=== PATIENT | male | born 1970 | race Caucasian/White ===

== ENCOUNTER 2025-10-03 07:22 | Inpatient (IN) | payer OTHER, SELFPAY ==
[2025-10-03] VITALS (11 sets, daily range): BP systolic 128–150; BP diastolic 81–96; PULSE 94–110; RESP 16–18; TEMP 36.8–38.1; O2SAT 91–97; BMI 39.7; BMI 37.2
--- NOTE | 2025-10-03 07:35 | ECG_ITS ---
APPROVED REPORT Exam: Resting ECG HR:106 bpm ECG Measurements Heart Rate 106 AXES WV 142 P 13 QRSd 102 QRS 24 QT 320 T -14 QTc 382 Conclusion SINUS TACHYCARDIA INFERIOR MYOCARDIAL INFARCTION , OF INDETERMINATE AGE [40+ ms Q WAVE AND/OR ST/T ABNORMALITY IN II/aVF] ABNORMAL ECG UNCONFIRMED REPORT Sinus tachycardia. No ST elevation or depression. QTc normal at 392 Electronically signed by : MICHELLE JUNE, 10/03/2025 15:28:45
--- NOTE | 2025-10-03 07:35 | CT_ITS ---
PROCEDURE INFORMATION: Exam: CT Abdomen And Pelvis With Contrast Exam date and time: 10/03/2025 7:55 AM Age: 54 years old Clinical indication: Constipation; Additional info: Constipation, postprandial upper abdominal pain TECHNIQUE: Imaging protocol: Computed tomography of the abdomen and pelvis with contrast. Radiation optimization: All CT scans at this facility use at least one of these dose optimization techniques: automated exposure control; mA and/or kV adjustment per patient size (includes targeted exams where dose is matched to clinical indication); or iterative reconstruction. Contrast material: ISOVUE; Contrast volume: 84 ml; Contrast route: IV; COMPARISON: No relevant prior studies available. FINDINGS: Coronary arteries: There are coronary artery calcifications. Liver: Normal. No mass. Gallbladder and biliary ducts: No calcified stones. No ductal dilation. Pancreas: Normal. No ductal dilation. Spleen: There is a 1 cm hypodensity in the spleen which is too small to characterize but is statistically incidental. Adrenal glands: Normal. No mass. Kidneys and ureters: Normal. No hydronephrosis. Stomach and bowel: There is diverticulosis throughout the left colon. There is elongated diverticulitis of the sigmoid colon. Appendix: No evidence of appendicitis. Intraperitoneal space: There is infiltration of the adjacent sigmoid mesentery with a 5.6 x 5.8 x 3.1 cm contained collection with gas within (series 3, image 86). There is a separate 1.3 cm collection with gas within as well. There is infiltration of the pelvic fat consistent with inflammatory change. Vasculature: No abdominal aortic aneurysm. Lymph nodes: No enlarged lymph nodes. Urinary bladder: Unremarkable as visualized. Reproductive: The prostate is enlarged. Bones/joints: There are degenerative changes of the spine there is ankylosis of the sacroiliac joints. Soft tissues: There is a fat containing periumbilical hernia. IMPRESSION: 1. Severe sigmoid diverticulitis with perforation and adjacent mesenteric collections. 2. Extensive colonic diverticulosis.
--- NOTE | 2025-10-03 07:37 | HMH.EDGENADL ---
Discharge Plan Disposition Patient Disposition: Admitted Prescriptions Prescriptions: No Action No Known Home Medications Referrals Follow up/Referrals: Lea Velasquez APRN [Primary Care Provider, Family Practice] - See instructions Clinical Impressions Clinical Impression: Diverticulitis of colon with perforation, Acute hyponatremia, Leukocytosis Instructions Patient Instructions: DI for Acute Abdominal Pain Print Language Print Language: Yoruba Discharge ED Provider: Galen Rangel General Adult HPI General Chief complaint: Abdominal Pain Stated complaint: stomach pain, constipation, sweats Time Seen by Provider: 10/03/25 07:29 History of Present Illness HPI narrative: Rayo Hill is a 54y male who is not currently taking any medications and has no known medical problems who presents to the emergency department for complaints of 3-1/2 weeks of constipation and abdominal pain. Patient states that for last 3-1/2 weeks, he feels the need to have a bowel movement every few hours but will often times not produce any stool or if he does, it is hard and small-volume. He denies any bloody stools. He also reports intermittent episodes of severe abdominal pain, mostly in the upper and mid abdomen. He states that this does seem to worsen several hours after eating. He will eat dinner and then later that night he will have severe pain. He denies any abdominal surgeries. He denies any alcohol, tobacco or recreational drug use. He denies any chest pain or shortness of breath. He states that on night, he woke up in a pool of sweat and severe pain but did not seek care at that time. He denies any dysuria or hematuria but states that sometimes he can go 2 to 3 hours and not have to urinate. Related Data Home Medications ?Medication ?Instructions ?Recorded ?Confirmed No Known Home Medications 02/04/24 02/04/24 Allergies Allergy/AdvReac Type Severity Reaction Status Date / Time No Known Allergies Allergy Verified 02/04/24 15:[address] [facility] Disclaimer: The information contained in this section may have been updated after the patient was seen, as this information can be updated by other users. Social History Smoking Status: Never smoker alcohol intake: current current occupational status: employed Travel in the last 8 weeks?: Inside the [place] Have you lived/traveled outside US in past 30 days?: No Contact w/someone who lives/traveled outside US past 30 days?: No Exposure to someone with infectious disease in past 14 days?: No Do you have a fever (greater than 100.4 F or 38 C)?: No Have you tested positive for COVID-19?: No Exposed to someone with COVID-19 in past 14 days?: No Do you have a sore throat?: No Do you have a cough?: No Do you have any weakness?: No Do you have any diarrhea?: No Are you experiencing any unusual bleeding?: No Do you have any muscle aches/pain?: No Do you have any abdominal pain?: Yes Are you experiencing loss of taste or smell?: No Other Medical History Have you received the Pneumonia Vaccine: No ROS Obtained: Yes Systems reviewed as appropriate & no additional complaints except as documented Physical Exam General General appearance: alert and in no apparent distress Head Head exam: atraumatic Eye Eye exam: Present normal appearance ENT ENT exam: Present normal external ear exam Neck Neck exam: Present full ROM Chest Chest inspection: Present symmetric chest wall rise Respiratory Respiratory exam: Present normal lung sounds bilaterally; Absent respiratory distress, wheezes or stridor Cardiovascular Cardiovascular exam: Present normal rhythm and tachycardia Abdominal Exam Abdominal exam: Present soft, distention (mildly distended), tenderness (Generalized abdominal tenderness but more focally in the right upper quadrant and epigastric region) and guarding (grimacing with palpation); Absent rigidity exam: Present deferred Extremities Exam Extremities exam: Present normal inspection Back Exam Back exam: Present normal inspection Neurological Exam Neurological exam: Present alert and oriented X3 Psychiatric Psychiatric exam: Present normal affect Skin Skin exam: Present warm and dry Medical Decision Making Medical Records Screening: Per USPSTF and CDC recommendations, given the prevalence of disease in our region, it is our hospital?s policy to screen for HIV and viral Hepatitis for all patients aged 18 and over and those with ongoing risk factors. Barry Inquiry Pt receiving controlled substance: No Vital Signs: 10/03/25 07:25 10/03/25 07:25 10/03/25 07:30 Temperature 98.4 F 98.4 F Temperature Source Oral Oral Pulse Rate 110 H 109 H Pulse Rate [Right] 110 H Respiratory Rate 16 16 Blood Pressure 145/96 H 145/96 H Blood Pressure [Right Arm] 145/96 H Blood Pressure Mean Blood Pressure Mean [Right Arm] 112 Blood Pressure Source Automatic Cuff Blood Pressure Source [Right Arm] Automatic Cuff Blood Pressure Position Supine Blood Pressure Position [Right Arm] Supine 02 Sat by Pulse Oximetry 96 96 95 Oxygen Delivery Method Room Air Room Air Room Air 10/03/25 08:00 10/03/25 08:15 10/03/25 08:30 Temperature Temperature Source Pulse Rate 101 H 98 H 99 H Pulse Rate [Right] Respiratory Rate 16 Blood Pressure 136/95 H 128/91 H 139/95 H Blood Pressure [Right Arm] Blood Pressure Mean 101 Blood Pressure Mean [Right Arm] Blood Pressure Source Blood Pressure Source [Right Arm] Blood Pressure Position Blood Pressure Position [Right Arm] 02 Sat by Pulse Oximetry 91 L 96 94 L Oxygen Delivery Method Room Air Room Air Lab Data Lab Results 10/03/25 07:50: WBC 25.5 H*, RBC 4.97, Hgb 12.7 L, Hct 39.2 L, MCV 78.9 L, MCH 25.6 L, MCHC 32.4, RDW 15.5, Plt Count 541 H, MPV 9.2, Neut % (Auto) 81.8 H, Lymph % (Auto) 7.8 L, Reynolds % (Auto) 8.6, Eos % (Auto) 0.3, Baso % (Auto) 0.3, Neut # (Auto) 20.9 H, Lymph # (Auto) 2.0, Reynolds # (Auto) 2.2 H, Eos # (Auto) 0.1, Baso # (Auto) 0.1, Sodium 132 L, Potassium 4.0, Chloride 102, Carbon Dioxide 22, Anion Gap 12.0, BUN 14, Creatinine 0.80, Estimated Creat Clear 182, Estimated GFR 101, Est GFR ( Amer) 122, Glucose 120 H, Lactate 0.6 L, Calcium 8.9, Total Bilirubin 0.6, AST 23, ALT 27, Alkaline Phosphatase 86, Troponin I < 0.01, Total Protein 7.9, Albumin 3.8, Globulin 4.1 H, Albumin/Globulin Ratio 0.9 L, Lipase 41 10/03/25 07:50 10/03/25 07:50 Orders (Tests/Meds): ED MEDICATIONS Generic Name Dose Route Start Last Admin Trade Name Freq PRN Reason Stop Dose Admin Piperacillin Sod/Tazobactam 100 mls @ 200 mls/hr 10/03/25 08:31 Sod 4.5 gm/ Sodium Chloride IV 10/03/25 09:00 ONCE ONE Sodium Chloride 10 ml 10/03/25 07:55 10/03/25 07:57 Sodium Chloride 0.9% 10ml Syr (Rad Only) IV 11/02/25 07:54 10 ml NEEDED PRN Administration Maintain IV Site Discontinued Medications Generic Name Dose Route Start Last Admin Trade Name Ramona PRN Reason Stop Dose Admin Lactated Ringer's 1,000 mls @ 999 mls/hr 10/03/25 07:40 10/03/25 07:48 Lactated Ringer's 1000 Ml Bag IV 10/03/25 08:40 999 mls/hr .Q1H1M ONE Administration Iopamidol 84 ml 10/03/25 07:55 10/03/25 07:57 Iopamidol-370 (76%);100ml Bottle IV 10/03/25 07:56 84 ml ONCE ONE Administration Morphine Sulfate 4 mg 10/03/25 07:35 10/03/25 07:48 Morphine 4mg/Ml Syringe IV 10/03/25 07:36 4 mg ONCE ONE Administration Ondansetron HCl 4 mg 10/03/25 07:35 10/03/25 07:48 Ondansetron 4mg/2ml Vial IV 10/03/25 07:36 4 mg ONCE ONE Administration ORDERS Category Date Time Status CT abdomen pelvis w con Stat Cat Scan 10/03/25 07:35 Completed CBC w/Auto Diff [Complete Blood Count Auto Diff] Stat Lab 10/03/25 07:50 Results CMP [Comprehensive Metabolic Panel] Stat Lab 10/03/25 07:50 Completed HIV Combo Stat Lab 10/03/25 07:50 Received Hepatitis C Ab Qual. W/ RFX Stat Lab 10/03/25 07:50 Received Lactic Acid Stat Lab 10/03/25 07:50 Completed Lipase Stat Lab 10/03/25 07:50 Completed Troponin I Q3H Lab 10/03/25 10:45 Ordered Troponin I Q3H Lab 10/03/25 13:45 Ordered Troponin I Stat Lab 10/03/25 07:50 Completed UA [Urinalysis and Microscopic] Stat Lab 10/03/25 07:35 Ordered Blood Culture Stat Micro 10/03/25 08:37 Ordered Medical Decision Narrative: Rayo Hill is a 54y male who is not currently taking any medications and has no known medical problems who presents to the emergency department for complaints of 3-1/2 weeks of constipation and abdominal pain. Patient states that for last 3-1/2 weeks, he feels the need to have a bowel movement every few hours but will often times not produce any stool or if he does, it is hard and small-volume. He denies any bloody stools. He also reports intermittent episodes of severe abdominal pain, mostly in the upper and mid abdomen. He states that this does seem to worsen several hours after eating. He will eat dinner and then later that night he will have severe pain. He denies any abdominal surgeries. He denies any alcohol, tobacco or recreational drug use. He denies any chest pain or shortness of breath. He states that on night, he woke up in a pool of sweat and severe pain but did not seek care at that time. He denies any dysuria or hematuria but states that sometimes he can go 2 to 3 hours and not have to urinate. He reports some nausea but denies any vomiting. On arrival, patient is mildly hypertensive blood pressure 145/96, mildly tachycardic with a heart rate of 107 bpm, oxygen saturation 95% on room air. Physical exam, as stated above, revealed overall well-appearing male in no respiratory distress. He is alert and answering questions appropriately. Abdomen appears mildly distended and he is tender throughout but more focally in the right upper quadrant and epigastric region. He has grimacing with tenderness in the upper abdomen. Abdomen is not peritonitic. Cardiopulmonary exam reveals no murmurs or rubs. No wheezing, rales or rhonchi. Differential diagnosis includes, but is not limited to: Constipation, fecal impaction, small obstruction, malignancy, acute pancreatitis, acute cholecystitis, choledocholithiasis, enteritis/colitis, diverticulitis, ACS, among others. The most morbid conditions were considered and workup was based on these. Workup in the emergency department included: CT abdomen pelvis with IV contrast, CBC with differential, CMP, lipase, lactic acid, urinalysis, EKG, troponin. Patient was administered 4 mg of IV morphine, 4 mg of IV Zofran and 1 L lactated ringer. EKG was interpreted by me personally. Sinus tachycardia but no ST elevation or depression. Deep Q waves in inferior leads, which could represent old myocardial infarction. QTc normal at 392 CT imaging was interpreted by me personally and radiology called shortly after my interpretation. Patient does have significant diverticulitis with in the sigmoid colon with mesenteric fat stranding. Per radiology, there is infiltration of the adjacent sigmoid mesentery with a 5.6 x 5.8 x 3.1 cm contained collection with gas within series 3, image 86. There is a separate 1.3 cm collection with gas within as well. There is infiltration of the pelvic fat consistent with inflammatory change. Radiology describes as severe sigmoid diverticulitis with perforation and adjacent mesenteric collections with extensive colonic diverticulosis. See final radiology report for details. I did discuss patient's case with Dr. Bowser with general surgery who recommended patient be placed on IV antibiotic, admitted clear liquid diet, and he will evaluate the patient as a consulting service and recommend admission to the hospital medicine service will place patient on. Patient will likely require serial abdominal exams and continued IV antibiotics but if he becomes peritonitic he may need operative intervention or drain placed by radiology. 4.5 g of IV Zosyn. I did discuss these findings with the patient and plan and he is in agreement to proceed with admission at this time. Lab work shows significant leukocytosis at 25.5 with neutrophilia. Mildly low hemoglobin at 12.7, hematocrit 39.2. Mild hyponatremia 132 but electrolytes within normal limits. No ASTRID. Initial troponin less than 0.01. Lipase normal at 41. I did discuss patient's case with Dr. Wallace with the hospital medicine service at approximately 08 40 and he agreed to admit the patient for further management. Admitting diagnosis is perforated diverticulitis. Critical Care Critical Care Time Critical Care Time: No
--- OUTSIDE RECORDS SUMMARY | 2025-10-03 07:37 | XMS_ITS ---
Author Organization Unknown ENCOUNTERS Encounter Performer Location Date Diagnosis Diagnosis Status Emergency [facility] [address] [place] [address] [id number] Pre Admit [facility] [address] [place] [address] [id number] *Note: Encounters from your own facility or health system may be excluded. Allergies, Adverse Reactions, Alerts Allergen Type Severity Identification Date Medications Name Date Quantity Days Supplied GPI Number
--- OUTSIDE RECORDS SUMMARY | 2025-10-03 07:37 | XMS_ITS | Clinical Summary ---
Author Organization [facility] Address [address] [place] [id number] Phone Care Team Providers Care New Media Strategist Name Role Phone Unavailable Primary Care Provider Unavailabl e Allergies No known active allergies Medications No known medications Social History Tobacco Use Types Packs/Day Years Used Date Smoking Tobacco: Never Alcohol Use Standard Drinks/Week Comments No 0 (1 standard drink = 0.6 oz pur e alcohol) Sex and Gender Information Value Date Recorded Sex Assigned at Not on file Legal Sex Male 8:25 PM EDT Gender Identity Not on file Sexual Orientation Not on file Last Filed Vital Signs Vital Sign Reading Time Taken Comments Blood Pressure - - Pulse - - Temperature - - Respiratory Rate - - Oxygen Saturation - - Inhaled Oxygen Concentration - - Weight 125.2 kg (276 lb) 11/18/2012 10:13 AM EST Height 182.9 cm (6') 11/18/2012 10:13 AM EST Body Mass Index 37.43 11/18/2012 10:13 AM EST Plan of Treatment Health Maintenance Due Date Last Done Comments Annual Wellness Exam 1973 DTaP/TDaP/Td (1 - Tdap) 1989 Hepatitis B Vaccine (1 of 3 - 19+ 3-dose series) 1989 Cologuard 2015 Colon Cancer Screening 2015 Colonoscopy 2015 FIT 2015 Sigmoidoscopy 2015 Virtual Colonography 2015 Pneumococcal Vaccine 50+ (1 of 1 - PCV) 2020 Zoster (1 of 2) 2020 COVID-19 Vaccine ( - 2024-2 6 season) 2025 Influenza Vaccine (#1) 2025 Meningococcal B Vaccine Aged Out No l onger eligible based on patient's age to complete this topic
[2025-10-03] MEDS: LACTATED RINGERS 1000ML 1,000 ML 999 ML IV (07:48)
[2025-10-03] MEDS: MORPHINE 4MG/ML SYRINGE 4 MG IV (07:48)
[2025-10-03] MEDS: ONDANSETRON 4MG/2ML VIAL 4 MG IV (07:48)
[2025-10-03] MEDS: SODIUM CHLORIDE 0.9% 10ML SYR (RAD ONLY) 10 ML IV (07:57)
[2025-10-03] MEDS: IOPAMIDOL-370 (76%);100ML BOTTLE 84 ML IV (07:57)
[2025-10-03 08:09] LABS: Hematocrit 39.2 % (42.0-52.0); Hemoglobin 12.7 g/dL (14.1-18.0); Immature Granulocytes % 1.2 %; Mean Corpuscular HGB Conc 32.4 g/dL (31.8-35.4); Mean Corpuscular Hemoglobin 25.6 pg (27.0-31.2); Mean Corpuscular Volume 78.9 fl (80-94); Nucleated Red Blood Cells % 0 %; Platelet Count 541 K/mm3 (142-424); Red Blood Count 4.97 M/mm3 (4.60-6.20); Red Cell Distribution Width-SD 44.0 fL; White Blood Count 25.5 K/mm3 (4.8-10.8)
[2025-10-03 08:16] LABS: Alanine Aminotransferase 27 U/L (12-78); Albumin Level 3.8 g/dl (3.5-5.0); Albumin/Globulin Ratio 0.9 (1.1-1.8); Alkaline Phosphatase 86 U/L (38-126); Anion Gap 12.0 mEq/L (5-15); Aspartate Amino Transferase 23 U/L (17-59); Bilirubin,Total 0.6 mg/dl (0.2-1.3); Blood Urea Nitrogen 14 mg/dl (9-20); Calcium 8.9 mg/dl (8.4-10.2); Carbon Dioxide 22 mmol/L (22.0-30.0); Chloride 102 mmol/L (98-107); Creatinine Clearance Estimated 182 mL/min (50-200); Creatinine,Serum 0.80 mg/dl (0.66-1.25); Estimated Glomerular Filt Rate 101 ml/min (>60); GFR (African American) 122 ML/MIN (>60); Globulin 4.1 g/dL (1.3-3.2); Glucose 120 mg/dl (74-100); Lipase 41 U/L (23-300); Potassium 4.0 mmoL/L (3.5-5.1); Sodium 132 mmol/L (136-145); Total Protein,Serum 7.9 g/dl (6.3-8.2)
--- NOTE | 2025-10-03 08:19 | PC.NURSE ---
Critical CT results called by the radiologist. I relayed to that the results show perforated diverticulitis and we should consult gen surgery.
--- NOTE | 2025-10-03 08:21 | PC.NURSE ---
Notified admissions to call surgery team for ED doctor
--- NOTE | 2025-10-03 08:23 | PC.NURSE ---
Notified admission to call surgeon for ED doctor
--- NOTE | 2025-10-03 08:23 | PC.NURSE ---
ROBIN CASTILLO on phone with surgeon
[2025-10-03 08:32] LABS: Troponin I < 0.01 ng/ml (0.00-0.034)
--- NOTE | 2025-10-03 08:52 | PC.NURSE ---
[facility] accepted pt
--- NOTE | 2025-10-03 08:52 | PC.NURSE ---
house notified of hospital admission
[2025-10-03] MEDS: PIPERACILLIN/TAZO 4.5 GM in 0.9 % SODIUM CHLORIDE 100 ML IV (09:04)
--- NOTE | 2025-10-03 09:05 | PC.NURSE ---
Report called to STEVO Robert.
[2025-10-03 09:25] LABS: Hypochromasia 1+; Total Cells Counted 100
--- NOTE | 2025-10-03 09:34 | P.HP_ITS ---
History of Present Illness *Admission Date: 10/03/25 *Reason for visit:: Abdominal pain, chills *History of present illness: Rayo Hill is a 54-year-old male with a medical history significant for constipation, obesity who presents with worsening diffuse abdominal pain and chills over the past 3 weeks. He states he has been struggling with constipation recently, does have bowel movements every 2 days but straining. He states abdominal pain has predominantly been in the upper half, and has been having chills and night sweats over the past few weeks. He states after his CAT scan with contrast in the ER his abdominal pain has been more suprapubic. Denies chest pain, shortness of breath. Denies bloody bowel movements. Workup in the ED significant for WBC 25.5, MCV 78.9, lactic 0.6, UA normal, CT abdomen/pelvis showing severe sigmoid diverticulitis with perforation and adjac ent mesenteric collections. However, patient did not have peritoneal signs in the ED. Given his presentation, ED provider discussed case with me and Dr. Bowser (general surgery) and accepted patient for further evaluation and management. [facility] Disclaimer: The information contained in this section may have been updated after the patient was seen, as this information can be updated by other users. Social History Smoking Status: Never smoker alcohol intake: current current occupational status: employed Travel in the last 8 weeks?: Inside the [place] Have you lived/traveled outside US in past 30 days?: No Contact w/someone who lives/traveled outside US past 30 days?: No Exposure to someone with infectious disease in past 14 days?: No Do you have a fever (greater than 100.4 F or 38 C)?: No Have you tested positive for COVID-19?: No Exposed to someone with COVID-19 in past 14 days?: No Do you have a sore throat?: No Do you have a cough?: No Do you have any weakness?: No Do you have any diarrhea?: No Are you experiencing any unusual bleeding?: No Do you have any muscle aches/pain?: No Do you have any abdominal pain?: Yes Are you experiencing loss of taste or smell?: No Other Medical History Have you received the Flu Vaccine for this season: No Have you received the Pneumonia Vaccine: No Meds Home Medications and Allergies Home Medications ?Medication ?Instructions ?Recorded ?Confirmed ?Type No Known Home Medications 10/03/2509/13 History New Prescriptions to Start Prescriptions: Allergies Allergy/AdvReac Type Severity Reaction Status Date / Time No Known Allergies Allergy Verified 02/04/24 15:19 Exam Data for Last 24 hours Vital signs and Labs for Last 24 Hours: Temp Pulse Resp BP Pulse Ox O2 Del Method 98.4 F 95 H 16 139/95 H 95 Room Air 10/03/25 09:13 10/03/25 09:13 10/03/25 09:13 10/03/25 09:13 10/03/25 09:00 10/03/25 09:13 Laboratory Results - last 24 hr 10/03/25 07:50: WBC 25.5 H*, RBC 4.97, Hgb 12.7 L, Hct 39.2 L, MCV 78.9 L, MCH 25.6 L, MCHC 32.4, RDW 15.5, Plt Count 541 H, MPV 9.2, Neut % (Auto) 81.8 H, Lymph % (Auto) 7.8 L, [place] % (Auto) 8.6, Eos % (Auto) 0.3, Baso % (Auto) 0.3, Neut # (Auto) 20.9 H, Lymph # (Auto) 2.0, [place] # (Auto) 2.2 H, Eos # (Auto) 0.1, Baso # (Auto) 0.1, Total Counted 100, Neutrophils % (Manual) 81 H, Lymphocytes % (Manual) 15, Monocytes % (Manual) 4, Platelet Estimate Moderate increase, Hypochromasia 1+, Sodium 132 L, Potassium 4.0, Chloride 102, Carbon Dioxide 22, Anion Gap 12.0, BUN 14, Creatinine 0.80, Estimated Creat Clear 182, Estimated GFR 101, Est GFR ( Amer) 122, Glucose 120 H, Lactate 0.6 L, Calcium 8.9, Total Bilirubin 0.6, AST 23, ALT 27, Alkaline Phosphatase 86, Troponin I < 0.01, Total Protein 7.9, Albumin 3.8, Globulin 4.1 H, Albumin/Globulin Ratio 0.9 L, Lipase 41 I & O for Last 24 hours: Intake & Output 11/10/01/25 10/02/25 10/03/25 23:59 23:59 23:59 23:59 Intake Total 1000 / 1000 Balance 1000 / 1000 Weight 122.016 kg Constitutional Constitutional: no acute distress, obese and chronically ill appearing *Routine HEENT Exam Head: Present normocephalic Eye: Present EOMI and PERRL ENT: Present mucous membranes moist *Routine Neck Exam Neck: Present supple; Absent lymphadenopathy *Routine Respiratory Exam Respiratory: Present CTA bilaterally *Routine Cardiovascular Exam Cardiovascular: Present RRR *Routine Abdominal Exam Abdominal: Present soft and normoactive bowel sounds; Absent tenderness Comments: No peritoneal signs. *Routine Rectal Exam Rectal:: deferred *Routine Genitalia Exam Genitalia:: deferred *Routine Extremities Exam Extremities: Absent cyanosis, clubbing or edema *Routine Skin Exam Skin: Present warm; Absent rash *Routine Neurological Exam Neurological: Present alert and oriented X3 Assessment and Plan *Assessment and plan (1) Diverticulitis of large intestine with complication: Problem Comment: Severe pericolonic/mesenteric inflammation with contained gas collection Status: Acute Category: Medical Code(s): K57.32 - Diverticulitis of large intestine without perforation or abscess without bleeding Plan Rayo Hill is a 54-year-old male with a medical history significant for constipation, obesity who presents with worsening diffuse abdominal pain and chills over the past 3 weeks. He states he has been struggling with constipation recently, does have bowel movements every 2 days but straining. He states abdominal pain has predominantly been in the upper half, and has been having chills and night sweats over the past few weeks. He states after his CAT scan with contrast in the ER his abdominal pain has been more suprapubic. Denies chest pain, shortness of breath. Denies bloody bowel movements. Workup in the ED significant for WBC 25.5, MCV 78.9, lactic 0.6, UA normal, CT abdomen/pelvis showing severe sigmoid diverticulitis with perforation and adjacent mesenteric collections. However, patient did not have peritoneal signs in the ED. Given his presentation, ED provider discussed case with me and Dr. Bowser (general surgery) and accepted patient for further evaluation and management. #Sepsis #Acute severe sigmoid diverticulitis with perforation #Constipation ? Patient presented with diffuse abdominal pain, chills over the past [address] abdomen/pelvis revealed severe sigmoid diverticulitis with perforation and adjacent mesenteric collections. ? Initial WBC 25.5 with tachycardia. Lactic acid normal. ? On my evaluation, patient seems very comfortable and ambulating around the room. No peritoneal signs, or abdominal pain. No nausea/vomiting, tolerating clear liquid diet. ? General Surgery consulted, recommended medical management at this time given no peritonitis. ? Continue Zosyn 3.375 g every 6 hours. ? MiraLAX daily. ? Clear liquid diet for today, considering advancing tomorrow pending surgery recommendations. ? Follow-up blood cultures. ? Serial abdominal exams. ? Follow-up morning CBC. #Obesity ? BMI 37, complicates all aspects of care. #Microcytosis ? Follow-up iron panel, vitamins. Full code DVT prophylaxis: IPC's.
[2025-10-03 11:11] LABS: Troponin I < 0.01 ng/ml (0.00-0.034)
[2025-10-03] MEDS: ACETAMINOPHEN 325MG TAB 650 MG PO ×2 (11:37→18:07)
[2025-10-03 11:38] LABS: Hepatitis C Ab Qual. W/ RFX NEGATIVE (Negative)
--- NOTE | 2025-10-03 11:45 | EXP.SURG.CON ---
History of Present Illness *Admission Date: 10/03/25 *Reason for visit:: Diverticulitis *History of present illness: This is a 54-year-old gentleman seen in consultation after evaluation emergency department for worsening abdominal pain. He was found to have significant leukocytosis with a white blood cell count of 25.5. Follow-up CT scan revealed changes consistent with complicated diverticulitis. Forwarded from emergency department evaluation (truncated): Rayo Hill is a 54y male who is not currently taking any medications and has no known medical problems who presents to the emergency department for complaints of 3-1/2 weeks of constipation and abdominal pain. Patient states that for last 3-1/2 weeks, he feels the need to have a bowel movement every few hours but will often times not produce any stool or if he does, it is hard and small-volume. He denies any bloody stools. He also reports intermittent episodes of severe abdominal pain, mostly in the upper and mid abdomen. He states that this does seem to worsen several hours after eating. He will eat dinner and then later that night he will have severe pain. He denies any abdominal surgeries. He denies any alcohol, tobacco or recreational drug use. He denies any chest pain or shortness of breath. He states that on night, he woke up in a pool of sweat and severe pain but did not seek care at that time. He denies any dysuria or hematuria but states that sometimes he can go 2 to 3 hours and not have to urinate. Medical Decision Narrative: .......He states that on night, he woke up in a pool of sweat and severe pain but did not seek care at that time. He denies any dysuria or hematuria but states that sometimes he can go 2 to 3 hours and not have to urinate. He reports some nausea but denies any vomiting. On arrival, patient is mildly hypertensive blood pressure 145/96, mildly tachycardic with a heart rate of 107 bpm, oxygen saturation 95% on room air. Physical exam, as stated above, revealed overall well-appearing male in no respiratory distress. He is alert and answering questions appropriately. Abdomen appears mildly distended and he is tender throughout but more focally in the right upper quadrant and epigastric region. He has grimacing with tenderness in the upper abdomen. Abdomen is not peritonitic. Cardiopulmonary exam reveals no murmurs or rubs. No wheezing, rales or rhonchi. Differential diagnosis includes, but is not limited to: Constipation, fecal impaction, small obstruction, malignancy, acute pancreatitis, acute cholecystitis, choledocholithiasis, enteritis/colitis, diverticulitis, ACS, among others. The most morbid conditions were considered and workup was based on these. Workup in the emergency department included: CT abdomen pelvis with IV contrast, CBC with differential, CMP, lipase, lactic acid, urinalysis, EKG, troponin. Patient was administered 4 mg of IV morphine, 4 mg of IV Zofran and 1 L lactated ringer. EKG was interpreted by me personally. Sinus tachycardia but no ST elevation or depression. Deep Q waves in inferior leads, which could represent old myocardial infarction. QTc normal at 392 CT imaging was interpreted by me personally and radiology called shortly after my interpretation. Patient does have significant diverticulitis with in the sigmoid colon with mesenteric fat stranding. Per radiology, there is infiltration of the adjacent sigmoid mesentery with a 5.6 x 5.8 x 3.1 cm contained collection with gas within series 3, image 86. There is a separate 1.3 cm collection with gas within as well. There is infiltration of the pelvic fat consistent with inflammatory change. Radiology describes as severe sigmoid diverticulitis with perforation and adjacent mesenteric collections with extensive colonic diverticulosis. See final radiology report for details........ PFSH PFSH Disclaimer: The information contained in this section may have been updated after the patient was seen, as this information can be updated by other users. Social History Smoking Status: Never smoker alcohol intake: current current occupational status: employed Travel in the last 8 weeks?: Inside the [place] Have you lived/traveled outside US in past 30 days?: No Contact w/someone who lives/traveled outside US past 30 days?: No Exposure to someone with infectious disease in past 14 days?: No Do you have a fever (greater than 100.4 F or 38 C)?: No Have you tested positive for COVID-19?: No Exposed to someone with COVID-19 in past 14 days?: No Do you have a sore throat?: No Do you have a cough?: No Do you have any weakness?: No Do you have any diarrhea?: No Are you experiencing any unusual bleeding?: No Do you have any muscle aches/pain?: No Do you have any abdominal pain?: Yes Are you experiencing loss of taste or smell?: No Review of Systems Review of Systems Review of systems:: pertinent systems reviewed and negative unless documented below *Gastrointestinal Gastrointestinal: Reports as per [facility] Meds Home Medications and Allergies Home Medications ?Medication ?Instructions ?Recorded ?Confirmed ?Type No Known Home Medications 10/03/25 10/03/25 History New Prescriptions to Start Prescriptions: Allergies Allergy/AdvReac Type Severity Reaction Status Date / Time No Known Allergies Allergy Verified 02/04/24 15:19 Exam (Inpt) Vital signs and Labs for Last 24 Hours: Temp Pulse Resp BP Pulse Ox O2 Del Method 99.3 F 99 H 18 132/85 97 Room Air 10/03/25 09:14 10/03/25 09:14 10/03/25 09:14 10/03/25 09:14 10/03/25 09:14 10/03/25 09:14 Laboratory Results - last 24 hr 10/03/25 07:50: WBC 25.5 H*, RBC 4.97, Hgb 12.7 L, Hct 39.2 L, MCV 78.9 L, MCH 25.6 L, MCHC 32.4, RDW 15.5, Plt Count 541 H, MPV 9.2, Neut % (Auto) 81.8 H, Lymph % (Auto) 7.8 L, [place] % (Auto) 8.6, Eos % (Auto) 0.3, Baso % (Auto) 0.3, Neut # (Auto) 20.9 H, Lymph # (Auto) 2.0, [place] # (Auto) 2.2 H, Eos # (Auto) 0.1, Baso # (Auto) 0.1, Total Counted 100, Neutrophils % (Manual) 81 H, Lymphocytes % (Manual) 15, Monocytes % (Manual) 4, Platelet Estimate Moderate increase, Hypochromasia 1+, Sodium 132 L, Potassium 4.0, Chloride 102, Carbon Dioxide 22, Anion Gap 12.0, BUN 14, Creatinine 0.80, Estimated Creat Clear 182, Estimated GFR 101, Est GFR ( Amer) 122, Glucose 120 H, Lactate 0.6 L, Calcium 8.9, Total Bilirubin 0.6, AST 23, ALT 27, Alkaline Phosphatase 86, Troponin I < 0.01, Total Protein 7.9, Albumin 3.8, Globulin 4.1 H, Albumin/Globulin Ratio 0.9 L, Lipase 41, HCV Ab SHARON w/Rflx PCR Qn Negative, HIV Ag/Ab Combo Qual Negative 10/03/25 10:20: Troponin I < 0.01 I & O for Labs for Last 24 Hours: Intake & Output 09/30/25 10/01/25 10/02/25 10/03/25 11:59 11:59 11:59 11:59 Intake Total 1000 / 1000 Output Total 0 / 0 Balance 1000 / 1000 Weight 251 lb 14.4 oz Constitutional: no acute distress Respiratory: Absent respiratory distress Cardiac: Present Tachycardia (Mildly) GI: Present soft and tenderness (Tenderness throughout mid and lower abdomen.); Absent guarding or rigidity Results Labs 10/03/25 07:50 10/03/25 07:50 Labs: Laboratory Results - last 24 hr 10/03/25 07:50: WBC 25.5 H*, RBC 4.97, Hgb 12.7 L, Hct 39.2 L, MCV 78.9 L, MCH 25.6 L, MCHC 32.4, RDW 15.5, Plt Count 541 H, MPV 9.2, Neut % (Auto) 81.8 H, Lymph % (Auto) 7.8 L, [place] % (Auto) 8.6, Eos % (Auto) 0.3, Baso % (Auto) 0.3, Neut # (Auto) 20.9 H, Lymph # (Auto) 2.0, [place] # (Auto) 2.2 H, Eos # (Auto) 0.1, Baso # (Auto) 0.1, Total Counted 100, Neutrophils % (Manual) 81 H, Lymphocytes % (Manual) 15, Monocytes % (Manual) 4, Platelet Estimate Moderate increase, Hypochromasia 1+, Sodium 132 L, Potassium 4.0, Chloride 102, Carbon Dioxide 22, Anion Gap 12.0, BUN 14, Creatinine 0.80, Estimated Creat Clear 182, Estimated GFR 101, Est GFR ( Amer) 122, Glucose 120 H, Lactate 0.6 L, Calcium 8.9, Total Bilirubin 0.6, AST 23, ALT 27, Alkaline Phosphatase 86, Troponin I < 0.01, Total Protein 7.9, Albumin 3.8, Globulin 4.1 H, Albumin/Globulin Ratio 0.9 L, Lipase 41, HCV Ab SHARON w/Rflx PCR Qn Negative, HIV Ag/Ab Combo Qual Negative 10/03/25 10:20: Troponin I < 0.[address] scan - abdomen: report reviewed and image reviewed CT scan - pelvis: report reviewed and image reviewed Assessment and Plan *Assessment and plan (1) Diverticulitis of large intestine with complication: Problem Comment: Severe pericolonic/mesenteric inflammation with contained gas collection Status: Acute Category: Medical Code(s): K57.32 - Diverticulitis of large intestine without perforation or abscess without bleeding Plan: The patient does not have evidence of joe peritonitis, uncontrolled leak, free air under the diaphragm , etc. He does not require emergent surgical intervention; however, continued hospitalization (IV antibiotics, serial abdominal exams, serial labs, etc.) warranted. Ongoing management pending continued response to therapy. Colonoscopy in near future (if he does not require urgent resection). Discussion with regard to possible elective resection will be ongoing.
[2025-10-03 11:49] LABS: Microscopic, Urine URINE MICROSCOPIC (MICROSCOPIC)
--- OUTSIDE RECORDS SUMMARY | 2025-10-03 14:03 | XMS_ITS | Clinical Summary ---
Author Organization [facility] Address [address] [place] [phone] Phone Care Team Providers Care Quantitative Software Engineer Name Role Phone Unavailable Primary Care Provider [...]
[2025-10-03 14:24] LABS: Bilirubin,Urine Negative (Negative); Color,Urine YELLOW (Yellow); Glucose,Urine (UA) Negative (Negative); Ketones,Urine 1+ (Negative); Leukocyte Esterase,Urine Negative (Negative); PH,Urine 5.5 (5.0-8.5); Protein,Urine Negative (Negative); Specific Gravity, Urine 1.015 (1.005-1.030); Urobilinogen,Urine 0.2 EU/dl (0.2)
[2025-10-03 14:38] LABS: Bacteria,Urine Trace /lpf; WBC,Urine Occasional #/hpf (0-3)
[2025-10-03] MEDS: LACTATED RINGERS 1000ML 1,000 ML 100 ML IV (18:08)
[2025-10-04] VITALS: BP 141/83; PULSE 82; RESP 16; TEMP 37.1; O2SAT 96
[2025-10-04] MEDS: LACTATED RINGERS 1000ML 1,000 ML 100 ML IV (03:01)
--- NOTE | 2025-10-04 03:14 | PC.NURSE ---
Pt is A&OX4 and has tolerated room air. Pt has tolerated diet well with no complaints of pain or nausea. He has received IV ABX. He has ambulated room independently. No complaints at this time, call light within reach.
[2025-10-04 04:00] VITALS: BP 126/63; PULSE 96; RESP 14; TEMP 37.4; O2SAT 94; BMI 38.9
[2025-10-04 06:58] LABS: Hematocrit 38.8 % (42.0-52.0); Hemoglobin 12.0 g/dL (14.1-18.0); Immature Granulocytes % 1.2 %; Mean Corpuscular HGB Conc 30.9 g/dL (31.8-35.4); Mean Corpuscular Hemoglobin 24.8 pg (27.0-31.2); Mean Corpuscular Volume 80.3 fl (80-94); Nucleated Red Blood Cells % 0 %; Platelet Count 485 K/mm3 (142-424); Red Blood Count 4.83 M/mm3 (4.60-6.20); Red Cell Distribution Width-SD 45.6 fL; White Blood Count 21.4 K/mm3 (4.8-10.8)
[2025-10-04 07:18] LABS: Alanine Aminotransferase 25 U/L (12-78); Albumin Level 3.7 g/dl (3.5-5.0); Albumin/Globulin Ratio 1.0 (1.1-1.8); Alkaline Phosphatase 89 U/L (38-126); Anion Gap 13.2 mEq/L (5-15); Aspartate Amino Transferase 27 U/L (17-59); Bilirubin,Total 0.7 mg/dl (0.2-1.3); Blood Urea Nitrogen 9 mg/dl (9-20); Calcium 8.7 mg/dl (8.4-10.2); Carbon Dioxide 21 mmol/L (22.0-30.0); Chloride 102 mmol/L (98-107); Cholesterol 117 mg/dl (140-200); Creatinine Clearance Estimated 178 mL/min (50-200); Creatinine,Serum 0.80 mg/dl (0.66-1.25); Estimated Glomerular Filt Rate 101 ml/min (>60); GFR (African American) 122 ML/MIN (>60); Globulin 3.7 g/dL (1.3-3.2); Glucose 111 mg/dl (74-100); HDL Cholesterol 21 mg/dl (40-60); Magnesium 2.0 mg/dl (1.6-2.3); Potassium 4.2 mmoL/L (3.5-5.1); Sodium 132 mmol/L (136-145); Total Protein,Serum 7.4 g/dl (6.3-8.2); Triglycerides 140 mg/dl (30-150)
--- NOTE | 2025-10-04 07:18 | EXP.SURG.PN ---
Subjective Patient reports: no new complaints and feels better Exam Data for Last 24 hours Vital signs and Labs for Last 24 Hours: Temp Pulse Resp BP Pulse Ox O2 Del Method 99.3 F 96 H 14 126/63 94 L Room Air 10/04/25 04:00 10/04/25 04:00 10/04/25 04:00 10/04/25 04:00 10/04/25 04:00 10/04/25 06:31 Laboratory Results - last 24 hr 10/03/25 07:50: WBC 25.5 H*, RBC 4.97, Hgb 12.7 L, Hct 39.2 L, MCV 78.9 L, MCH 25.6 L, MCHC 32.4, RDW 15.5, Plt Count 541 H, MPV 9.2, Neut % (Auto) 81.8 H, Lymph % (Auto) 7.8 L, [place] % (Auto) 8.6, Eos % (Auto) 0.3, Baso % (Auto) 0.3, Neut # (Auto) 20.9 H, Lymph # (Auto) 2.0, [place] # (Auto) 2.2 H, Eos # (Auto) 0.1, Baso # (Auto) 0.1, Total Counted 100, Neutrophils % (Manual) 81 H, Lymphocytes % (Manual) 15, Monocytes % (Manual) 4, Platelet Estimate Moderate increase, Hypochromasia 1+, Sodium 132 L, Potassium 4.0, Chloride 102, Carbon Dioxide 22, Anion Gap 12.0, BUN 14, Creatinine 0.80, Estimated Creat Clear 182, Estimated GFR 101, Est GFR ( Amer) 122, Glucose 120 H, Lactate 0.6 L, Calcium 8.9, Total Bilirubin 0.6, AST 23, ALT 27, Alkaline Phosphatase 86, Troponin I < 0.01, Total Protein 7.9, Albumin 3.8, Globulin 4.1 H, Albumin/Globulin Ratio 0.9 L, Lipase 41, HCV Ab SHARON w/Rflx PCR Qn Negative, HIV Ag/Ab Combo Qual Negative 10/03/25 10:20: Troponin I < 0.01 10/03/25 11:45: Urine Color Yellow, Urine Appearance Clear, Urine pH 5.5, Ur Specific [place] 1.015, Urine Protein Negative, Urine Glucose (UA) Negative, Urine Ketones 1+, Urine Blood Negative, Urine Nitrate Negative, Urine Bilirubin Negative, Urine Urobilinogen 0.2, Ur Leukocyte Esterase Negative, Urine RBC None, Urine WBC Occasional, Ur Squamous Epith Cells None, Urine Bacteria Trace I & O for Last 24 hours: Intake & Output 10/01/25 10/02/25 10/03/25 10/04/25 11:59 11:59 11:59 11:59 Intake Total 1100 / 1100 2568.333 / 2568.333 Output Total 0 / 0 0 / 0 Balance 1100 / 1100 2568.333 / 2568.333 Weight 251 lb 14.4 oz 263 lb 4.8 oz Constitutional Constitutional: no acute distress *Routine Respiratory Exam Respiratory: Absent respiratory distress *Routine Cardiovascular Exam Cardiovascular: Absent tachycardia *Routine Abdominal Exam Abdominal: Present soft Progress Note: A&P Assessment and plan (1) Diverticulitis of large intestine with complication: Problem details: Severe pericolonic/mesenteric inflammation with contained gas collection Status: Acute Assessment and plan: Improving on antibiotic therapy Continue IV antibiotics for now Follow-up a.m. labs Recommend not advancing diet beyond full liquids for now
[2025-10-04 07:27] LABS: Iron 28 ug/dL (49-181)
[2025-10-04 07:37] LABS: Total Iron Binding Capacity 159 ug/dL (261-462)
[2025-10-04 07:55] VITALS: BP 138/78; PULSE 100; RESP 16; TEMP 36.9; O2SAT 100
[2025-10-04 08:02] LABS: Ferritin 515 ng/ml (17.9-464)
[2025-10-04 10:48] LABS: RBC Morphology Normal; Total Cells Counted 100
--- NOTE | 2025-10-04 10:56 | HMH.PHAAMS2 ---
- Antimicrobial Stewardship Review culture & sensitivity review Stewardship interventions: culture & sensitivity review Comments: BLOOD CX NO GROWTH AT 24 HR, PATIENT BEING TREATED EMPIRICIALLY FOR DIVERTICULITIS WITH ZOSYN.
[2025-10-04 11:55] VITALS: BP 137/89; PULSE 91; RESP 18; TEMP 36.9; O2SAT 99
--- NOTE | 2025-10-04 13:48 | EXP.PN ---
Subjective *Date: 10/04/25 *Time: 13:48 Interval history: Today, patient continues to be very comfortable and ambulating around the room. States abdominal pain is resolved, having balance. Discussed with general surgery, recommend medical management at this time given no peritonitis. Advised not advancing further than full liquid diet. Exam Data for Last 24 hours Vital signs and Labs for Last 24 Hours: Temp Pulse Resp BP Pulse Ox O2 Del Method 98.5 F 91 H 18 137/89 99 Room Air 10/04/25 11:55 10/04/25 11:55 10/04/25 11:55 10/04/25 11:55 10/04/25 11:55 10/04/25 11:55 Laboratory Results - last 24 hr 10/03/25 11:45: Urine Color Yellow, Urine Appearance Clear, Urine pH 5.5, Ur Specific [place] 1.015, Urine Protein Negative, Urine Glucose (UA) Negative, Urine Ketones 1+, Urine Blood Negative, Urine Nitrate Negative, Urine Bilirubin Negative, Urine Urobilinogen 0.2, Ur Leukocyte Esterase Negative, Urine RBC None, Urine WBC Occasional, Ur Squamous Epith Cells None, Urine Bacteria Trace 10/04/25 06:40: WBC 21.4 H*, RBC 4.83, Hgb 12.0 L, Hct 38.8 L, MCV 80.3, MCH 24.8 L, MCHC 30.9 L, RDW 15.6, Plt Count 485 H, MPV 8.9, Neut % (Auto) 78.2, Lymph % (Auto) 11.1, [place] % (Auto) 8.3, Eos % (Auto) 0.7, Baso % (Auto) 0.5, Neut # (Auto) 16.7 H, Lymph # (Auto) 2.4, [place] # (Auto) 1.8 H, Eos # (Auto) 0.2, Baso # (Auto) 0.1, Total Counted 100, Neutrophils % (Manual) 79 H, Lymphocytes % (Manual) 12, Monocytes % (Manual) 9, Platelet Estimate Slight increase, RBC Morphology Normal, Sodium 132 L, Potassium 4.2, Chloride 102, Carbon Dioxide 21 L, Anion Gap 13.2, BUN 9 D, Creatinine 0.80, Estimated Creat Clear 178, Estimated GFR 101, Est GFR ( Amer) 122, Glucose 111 H, Calcium 8.7, Magnesium 2.0, Iron 28 L, TIBC 159 L, Iron Saturation 17.19730, Ferritin 515 H, Total Bilirubin 0.7, AST 27, ALT 25, Alkaline Phosphatase 89, Total Protein 7.4, Albumin 3.7, Globulin 3.7 H, Albumin/Globulin Ratio 1.0 L, Triglycerides 140, Cholesterol 117 L, LDL Cholesterol Direct 62.61 L, VLDL Cholesterol 28, HDL Cholesterol 21 L, Cholesterol/HDL Ratio 5.6 H I & O for Last 24 hours: Intake & Output 10/01/25 10/02/25 10/03/25 10/04/25 23:59 23:59 23:59 23:59 Intake Total 2380 / 2680 3088.333 / 3088.333 Output Total 0 / 0 0 / 0 Balance 2380 / 2680 3088.333 / 3088.333 Weight 114.26 kg 119.431 kg Microbiology Reports for the Last 24 Hours: Microbiology 10/03/25 08:52 Blood Blood Culture - Preliminary NO GROWTH AFTER 24 HOURS 10/03/25 08:45 Blood Blood Culture - Preliminary NO GROWTH AFTER 24 HOURS Constitutional Constitutional: no acute distress and obese *Routine HEENT Exam Head: Present normocephalic Eye: Present EOMI and PERRL ENT: Present mucous membranes moist *Routine Neck Exam Neck: Present supple; Absent lymphadenopathy *Routine Respiratory Exam Respiratory: Absent respiratory distress *Routine Cardiovascular Exam Cardiovascular: Absent tachycardia *Routine Abdominal Exam Abdominal: Present soft *Routine Extremities Exam Extremities: Absent cyanosis, clubbing or edema *Routine Skin Exam Skin: Present warm; Absent rash *Routine Neurological Exam Neurological: Present alert and oriented X3 Assessment and Plan *Assessment and plan (1) Diverticulitis of large intestine with complication: Problem Comment: Severe pericolonic/mesenteric inflammation with contained gas collection Status: Acute Category: Medical Code(s): K57.32 - Diverticulitis of large intestine without perforation or abscess without bleeding Plan Rayo Hill is a 54-year-old male with a medical history significant for constipation, obesity who presents with worsening diffuse abdominal pain and chills over the past 3 weeks. He states he has been struggling with constipation recently, does have bowel movements every 2 days but straining. He states abdominal pain has predominantly been in the upper half, and has been having chills and night sweats over the past few weeks. He states after his CAT scan with contrast in the ER his abdominal pain has been more suprapubic. Denies chest pain, shortness of breath. Denies bloody bowel movements. Workup in the ED significant for WBC 25.5, MCV 78.9, lactic 0.6, UA normal, CT abdomen/pelvis showing severe sigmoid diverticulitis with perforation and adjacent mesenteric collections. However, patient did not have peritoneal signs in the ED. Given his presentation, ED provider discussed case with me and Dr. Bowser (general surgery) and accepted patient for further evaluation and management. #Sepsis #Acute severe sigmoid diverticulitis with perforation #History of constipation ? Patient presented with diffuse abdominal pain, chills over the past [address] abdomen/pelvis revealed severe sigmoid diverticulitis with perforation and adjacent mesenteric collections. ? Initial WBC 25.5 with tachycardia. Lactic acid normal. ? WBC improved from 24-16. Slightly tachycardic in the low 90s still. Fever 100.6 at 4 PM yesterday. ? Today, patient continues to be very comfortable and ambulating around the room. States abdominal pain is resolved, having balance. ? Discussed with general surgery, recommend medical management at this time given no peritonitis. Advised not advancing further than full liquid diet. ? Continue Zosyn 4.5 g every 6 hours. ? MiraLAX daily. ? Continue full liquid diet. ? Blood cultures NGTD. ? Serial abdominal exams. ? Follow-up morning CBC. #Obesity ? BMI 37, complicates all aspects of care. # Microcytic anemia ? Iron studies low, follow-up ferritin. ? Will need outpatient screening colonoscopy. Full code DVT prophylaxis: IPC's.
[2025-10-04 16:00] VITALS: BP 151/67; PULSE 89; RESP 16; TEMP 36.8; O2SAT 99
[2025-10-04 20:00] VITALS: BP 137/82; PULSE 100; RESP 16; TEMP 37.1; O2SAT 97
[2025-10-05] VITALS: BP 117/64; PULSE 93; RESP 14; TEMP 37.5; O2SAT 97
[2025-10-05 04:00] VITALS: BP 142/92; PULSE 100; RESP 18; TEMP 37.4; O2SAT 96; BMI 37.2
[2025-10-05 06:27] LABS: Hematocrit 35.8 % (42.0-52.0); Hemoglobin 11.5 g/dL (14.1-18.0); Immature Granulocytes % 1.3 %; Mean Corpuscular HGB Conc 32.1 g/dL (31.8-35.4); Mean Corpuscular Hemoglobin 25.1 pg (27.0-31.2); Mean Corpuscular Volume 78.2 fl (80-94); Nucleated Red Blood Cells % 0 %; Platelet Count 481 K/mm3 (142-424); Red Blood Count 4.58 M/mm3 (4.60-6.20); Red Cell Distribution Width-SD 44.3 fL; White Blood Count 16.8 K/mm3 (4.8-10.8)
[2025-10-05 06:44] LABS: Alanine Aminotransferase 44 U/L (12-78); Albumin Level 3.3 g/dl (3.5-5.0); Albumin/Globulin Ratio 0.9 (1.1-1.8); Alkaline Phosphatase 103 U/L (38-126); Anion Gap 10.0 mEq/L (5-15); Aspartate Amino Transferase 42 U/L (17-59); Bilirubin,Total 0.5 mg/dl (0.2-1.3); Blood Urea Nitrogen 6 mg/dl (9-20); Calcium 8.7 mg/dl (8.4-10.2); Carbon Dioxide 24 mmol/L (22.0-30.0); Chloride 103 mmol/L (98-107); Creatinine Clearance Estimated 195 mL/min (50-200); Creatinine,Serum 0.70 mg/dl (0.66-1.25); Estimated Glomerular Filt Rate 118 ml/min (>60); GFR (African American) 142 ML/MIN (>60); Globulin 3.7 g/dL (1.3-3.2); Glucose 109 mg/dl (74-100); Magnesium 2.1 mg/dl (1.6-2.3); Potassium 4.0 mmoL/L (3.5-5.1); Sodium 133 mmol/L (136-145); Total Protein,Serum 7.0 g/dl (6.3-8.2)
[2025-10-05 07:29] LABS: Ferritin 554 ng/ml (17.9-464)
[2025-10-05 07:51] VITALS: BP 134/84; PULSE 98; RESP 14; TEMP 36.8; O2SAT 96
[2025-10-05] MEDS: POLYETHYLENE GLYCOL 3350 17 GM PACKET PO (08:31)
--- NOTE | 2025-10-05 08:50 | EXP.SURG.PN ---
Subjective Patient reports: no new complaints and feels better Exam Data for Last 24 hours Vital signs and Labs for Last 24 Hours: Temp Pulse Resp BP Pulse Ox O2 Del Method 98.3 F 98 H 14 134/84 96 Room Air 10/05/25 07:51 10/05/25 07:51 10/05/25 07:51 10/05/25 07:51 10/05/25 07:51 10/05/25 08:47 Laboratory Results - last 24 hr 10/04/25 06:40: Total Counted 100, Neutrophils % (Manual) 79 H, Lymphocytes % (Manual) 12, Monocytes % (Manual) 9, Platelet Estimate Slight increase, RBC Morphology Normal 10/05/25 06:11: WBC 16.8 H, RBC 4.58 L, Hgb 11.5 L, Hct 35.8 L, MCV 78.2 L, MCH 25.1 L, MCHC 32.1, RDW 15.5, Plt Count 481 H, MPV 8.8, Neut % (Auto) 79.6, Lymph % (Auto) 9.5 L, [place] % (Auto) 7.8, Eos % (Auto) 1.5, Baso % (Auto) 0.3, Neut # (Auto) 13.3 H, Lymph # (Auto) 1.6, [place] # (Auto) 1.3 H, Eos # (Auto) 0.3, Baso # (Auto) 0.1, Sodium 133 L, Potassium 4.0, Chloride 103, Carbon Dioxide 24, Anion Gap 10.0, BUN 6 L D, Creatinine 0.70, Estimated Creat Clear 195, Estimated GFR 118, Est GFR ( Amer) 142, Glucose 109 H, Calcium 8.7, Magnesium 2.1, Ferritin 554 H, Total Bilirubin 0.5, AST 42 D, ALT 44 D, Alkaline Phosphatase 103, Total Protein 7.0, Albumin 3.3 L D, Globulin 3.7 H, Albumin/Globulin Ratio 0.9 L I & O for Last 24 hours: Intake & Output 10/02/25 10/03/25 10/04/25 10/05/25 11:59 11:59 11:59 11:59 Intake Total 1100 / 1100 3468.333 / 3468.333 4300 / 4300 Output Total 0 / 0 0 / 0 0 / 0 Balance 1100 / 1100 3468.333 / 3468.333 4300 / 4300 Weight 251 lb 14.4 oz 263 lb 4.8 oz 251 lb 8 oz Microbiology Reports for the Last 24 Hours: Microbiology 10/03/25 08:52 Blood Blood Culture - Preliminary NO GROWTH AFTER 24 HOURS 10/03/25 08:45 Blood Blood Culture - Preliminary NO GROWTH AFTER 24 HOURS Constitutional Constitutional: no acute distress *Routine Respiratory Exam Respiratory: Absent respiratory distress *Routine Cardiovascular Exam Cardiovascular: Absent tachycardia *Routine Abdominal Exam Abdominal: Present soft Progress Note: A&P Assessment and plan (1) Diverticulitis of large intestine with complication: Problem details: Severe pericolonic/mesenteric inflammation with contained gas collection Status: Acute Assessment and plan: Improving on antibiotic therapy Likely change to PO antibiotics (complete course) Continue full liquids for now (can slowly advance over the next few days) Ongoing outpatient follow-up
--- NOTE | 2025-10-05 08:55 | HMH.PHAAMS2 ---
- Antimicrobial Stewardship Review culture & sensitivity review Stewardship interventions: culture & sensitivity review (DIVERTICULITIS, ON ZOSYN, AFEBRILE, WBC STILL ELEVATED AT 16.8K BUT DECREASED SINCE ADMISSION. )
--- NOTE | 2025-10-05 11:15 | P.DS_ITS ---
<Statement entered by Chad Wallace MD - 10/06/25 12:31> Agree with plan of care as outlined by the [employer] MANAGER. Will need close follow-up with general surgery within 1 week. General Admission date:: 10/03/25 Discharge date: 10/05/25 HPI HPI HPI: Rayo Hill is a 54-year-old male with a medical history significant for constipation, obesity who presents with worsening diffuse abdominal pain and chills over the past 3 weeks. He states he has been struggling with constipation recently, does have bowel movements every 2 days but straining. He states abdominal pain has predominantly been in the upper half, and has been having chills and night sweats over the past few weeks. He states after his CAT scan with contrast in the ER his abdominal pain has been more suprapubic. Denies chest pain, shortness of breath. Denies bloody bowel movements. Workup in the ED significant for WBC 25.5, MCV 78.9, lactic 0.6, UA normal, CT abdomen/pelvis showing severe sigmoid diverticulitis with perforation and adjacent mesenteric collections. However, patient did not have peritoneal signs in the ED. Given his presentation, ED provider discussed case with me and Dr. Bowser (general surgery) and accepted patient for further evaluation and management. Hospital Course Hospital Course Hospital Course: Mr. Hill is a 54-year-old male who originally presented to the emergency department on 10/03/2025 with complaints of abdominal pain and constipation for approximately 3 weeks. He stated he felt like he needed to have a bowel movement every few hours but has not been able to produce much stool and it is hard and small in volume. He denied melena or bright red bleeding per rectum. He denied abdominal surgeries, use of alcohol, tobacco, or recreational drugs. Denies shortness of breath, chest pain, urinary symptoms. He does endorse fever and chills prior to arrival. Workup in the emergency department was significant for diverticulitis of the sigmoid colon. Dr. Bowser, general surgery, was consulted and recommended patient be admitted for IV antibiotics, clear liquid diet, and general surgery would evaluate patient. Patient was started on Zosyn 4.5 g every 6 hours. Patient did have significant leukocytosis upon admission 25.5 with neutrophilic shift. Mildly hyponatremia with sodium of 132, other electrolytes within normal limits. Normal kidney function, negative troponin, lipase 41. Patient did meet sepsis criteria with tachycardia, low-grade fever of 100.6, and elevated WBC. Patient was given sepsis bolus in the ED prior to admission. Hospital medicine was consulted for admission, hospital course as follows: #Sepsis, resolved #Acute severe sigmoid colon diverticulitis #Abdominal pain #Constipation, resolved ?Patient presented with diffuse abdominal pain, fever, chills on and off for [address] abdomen/pelvis revealed severe sigmoid diverticulitis with perforation. Initial WBC 25.5 with tachycardia, WBC trending downward day of discharge to 16.8. Patient received Zosyn 4.5 g every 6 hours during admission, transitioning to Augmentin 875-125 mg twice daily to complete a total of 10 days of antibiotics. Patient has remained afebrile since admission. ?Patient denies abdominal pain, states he has had multiple stools since admission. Still slightly tachycardic heart rate between 90?100. Patient is very comfortable tolerating full liquid diet without issue, ambulating in the room and in the lopez. Denies nausea, vomiting. ?Discussed with general surgery, Dr. Bowser who states patient may discharge with oral antibiotics and strict full liquid/soft bland diet. Patient will follow-up with Dr. Taylor in the office next week. Sooner if needed. Patient should continue MiraLAX daily at discharge. ?Blood cultures continue to show no growth. ?Patient will need outpatient screening colonoscopy as he has never had 1 after diverticulitis resolves. Total time spent on discharge 35 minutes in counseling, documentation, chart review, and direct care with patient. Exam Data for Last 24 hours Vital signs and Labs for Last 24 Hours: Temp Pulse Resp BP Pulse Ox O2 Del Method 98.3 F 98 H 14 134/84 96 Room Air 10/05/25 07:51 10/05/25 07:51 10/05/25 07:51 10/05/25 07:51 10/05/25 07:51 10/05/25 08:47 Laboratory Results - last 24 hr 10/05/25 06:11: WBC 16.8 H, RBC 4.58 L, Hgb 11.5 L, Hct 35.8 L, MCV 78.2 L, MCH 25.1 L, MCHC 32.1, RDW 15.5, Plt Count 481 H, MPV 8.8, Neut % (Auto) 79.6, Lymph % (Auto) 9.5 L, [place] % (Auto) 7.8, Eos % (Auto) 1.5, Baso % (Auto) 0.3, Neut # (Auto) 13.3 H, Lymph # (Auto) 1.6, [place] # (Auto) 1.3 H, Eos # (Auto) 0.3, Baso # (Auto) 0.1, Sodium 133 L, Potassium 4.0, Chloride 103, Carbon Dioxide 24, Anion Gap 10.0, BUN 6 L D, Creatinine 0.70, Estimated Creat Clear 195, Estimated GFR 118, Est GFR ( Amer) 142, Glucose 109 H, Calcium 8.7, Magnesium 2.1, Ferritin 554 H, Total Bilirubin 0.5, AST 42 D, ALT 44 D, Alkaline Phosphatase 103, Total Protein 7.0, Albumin 3.3 L D, Globulin 3.7 H, Albumin/Globulin Ratio 0.9 L I & O for Last 24 hours: Intake & Output 10/02/25 10/03/25 10/04/25 10/05/25 23:59 23:59 23:59 23:59 Intake Total 2380 / 2680 5088.333 / 5338.333 1500 / 1500 Output Total 0 / 0 0 / 0 0 / 0 Balance 2380 / 2680 5088.333 / 5338.333 1500 / 1500 Weight 114.26 kg 119.431 kg 114.078 kg Microbiology Reports for the Last 24 Hours: Microbiology 10/03/25 08:52 Blood Blood Culture - Preliminary NO GROWTH AFTER 48 HOURS 10/03/25 08:45 Blood Blood Culture - Preliminary NO GROWTH AFTER 48 HOURS Constitutional Constitutional: no acute distress, obese, chronically ill appearing and cooperative *Routine HEENT Exam Head: Present normocephalic Eye: Present EOMI and PERRL ENT: Present mucous membranes moist *Routine Neck Exam Neck: Present supple; Absent lymphadenopathy *Routine Respiratory Exam Respiratory: Present CTA bilaterally and normal respiratory effort; Absent respiratory distress, wheezes, crackles or diminished air movement *Routine Cardiovascular Exam Cardiovascular: Present RRR; Absent tachycardia *Routine Abdominal Exam Abdominal: Present soft, normoactive bowel sounds and obese; Absent tenderness or distended *Routine Rectal Exam Patient deferred: visual exam *Routine Exam Patient deferred: penile exam *Routine Extremities Exam Extremities: Absent cyanosis, clubbing or edema *Routine Skin Exam Skin: Present intact, dry and warm; Absent rash *Routine Neurological Exam Neurological: Present alert, oriented X3, vision grossly intact, hearing grossly intact and normal speech Routine Psychiatric Exam Psychiatric: Present normal affect Results Data Completed and Pending Labs on day of discharge: Labs from last 24 hours 10/05/25 06:11 WBC 16.8 H RBC 4.58 L Hgb 11.5 L Hct 35.8 L MCV 78.2 L MCH 25.1 L MCHC 32.1 RDW 15.5 Plt Count 481 H MPV 8.8 Neut % (Auto) 79.6 Lymph % (Auto) 9.5 L [place] % (Auto) 7.8 Eos % (Auto) 1.5 Baso % (Auto) 0.3 Neut # (Auto) 13.3 H Lymph # (Auto) 1.6 [place] # (Auto) 1.3 H Eos # (Auto) 0.3 Baso # (Auto) 0.1 Sodium 133 L Potassium 4.0 Chloride 103 Carbon Dioxide 24 Anion Gap 10.0 BUN 6 L D Creatinine 0.70 Estimated Creat Clear 195 Estimated GFR 118 Est GFR ( Amer) 142 Glucose 109 H Calcium 8.7 Magnesium 2.1 Ferritin 554 H Total Bilirubin 0.5 AST 42 D ALT 44 D Alkaline Phosphatase 103 Total Protein 7.0 Albumin 3.3 L D Globulin 3.7 H Albumin/Globulin Ratio 0.9 L Preliminary micro results at discharge 10/03/25 08:52 Blood Culture - Preliminary Blood NO GROWTH AFTER 48 HOURS 10/03/25 08:45 Blood Culture - Preliminary Blood NO GROWTH AFTER 48 HOURS DS: Diagnosis Discharge Diagnosis (1) Diverticulitis of large intestine with complication: Status: Acute Code(s): K57.32 - Diverticulitis of large intestine without perforation or abscess without bleeding Problem details: Severe pericolonic/mesenteric inflammation with contained gas collection (2) Leukocytosis: Status: Acute Code(s): D72.829 - Elevated white blood cell count, unspecified (3) Acute hyponatremia: Status: Acute Code(s): E87.1 - Hypo-osmolality and hyponatremia Meds Home Medications and Allergies Home Medications ?Medication ?Instructions ?Recorded ?Confirmed ?Type amoxicillin 875 mg-potassium 1 tab PO BID #14 tabs Rx clavulanate 125 mg tablet New Prescriptions to Start Prescriptions: amoxicillin-pot clavulanate Samia Garcia Allergies Allergy/AdvReac Type Severity Reaction Status Date / Time No Known Allergies Allergy Verified 02/04/24 15:19 Discharge Plan Disposition Patient Disposition: Home, Self-Care Condition: Good Discharge Order Discharge Orders: Discharge Order (Routine); Ordered 10/05/25 Ordered By: Samia Garcia Follow up Plan Follow up with: Lea Velasquez APRN [Primary Care Provider, [facility]] - 10/19/25 10:00 am Dallas Bowser MD [Staff Physician, General Surgery] - 10/14/25 9:15 am Prescriptions/Medication Reconciliation: New amoxicillin-pot clavulanate 875-125 mg tablet 1 tab PO BID Qty: 14 0RF Problem Reconciliation Problems Reviewed?: Yes Patient Discharge Instructions ACTIVITY: Continue current activity and Ambulate as tolerated DIET: other Additional Instructions: Slowly advance to soft diet over the next 48 to 72 hours Patient Instructions: DI for Diverticulitis, DI for Leukocytosis Print Language: Tu[place] Providers Primary Care Provider: Lea Velasquez Admit Provider: Chad Wallace Attending Provider: Chad Wallace
--- NOTE | 2025-10-05 12:47 | DIET.NUTRFU ---
Consulted by nursing for diet on diverticulitis, reviewed low fiber x 2-3 weeks and then adding fiber back in. Patient review diet with RD, it sounds like it is carb heavy and deficient in fiber. also reviewed water intake. Handout provided and contact information for further follow-up if needed
--- NOTE | 2025-10-05 12:54 | PC.NURSE ---
Pt asked for return to work paperwork. He asked if he could return to work tomorrow. Stephen Garcia CELLAR PACKER Notified. OK to return to work. Pt left to go home at [phone]
--- NOTE | 2025-10-06 09:55 | SW/DCPLANNER ---
Spoke with patient on the phone. Patient stated that he is doing well. Patient stated that he is aware of his upcoming appointments. Patient stated that he was able to get his new medicine picked up from clinic pharmacy. Patient stated that he has no concerns or questions at this time. Daniel Allen
== END 2025-10-05 12:38 | disposition home or self-care (01) | DRG 872 ==
LOC: ER 08:36 → 2ND 09:39
PROVIDERS: Admitting Provider Student in an Organized Health Care Education/Training Program; Emergency Provider Student in an Organized Health Care Education/Training Program; PCP Nurse Practitioner; Visit Provider Student in an Organized Health Care Education/Training Program
DX: A41.9 Sepsis, unspecified organism (principal); K57.20 Diverticulitis of large intestine with perforation and abscess without bleeding; E87.1 Hypo-osmolality and hyponatremia; K59.00 Constipation, unspecified; E66.9 Obesity, unspecified; D50.9 Iron deficiency anemia, unspecified; Z68.37 Body mass index [BMI] 37.0-37.9, adult
CPT/HCPCS: 36415; 74177; 80053; 80061; 81001; 82728; 83540; 83550; 83605; 83690; 83735; 84484; 85007; 85025; 86803; 87040; 87389; 93005; 99285; J2270; J2405; J2543; J7120; Q9967